=== PATIENT | male | born 1930 | race Caucasian/White ===

== ENCOUNTER 2017-05-09 08:49 | Emergency (ER) | payer MEDICARE ==
[~2017-05-09] VITALS: Ht 162.6 cm; Wt 66.7 kg
[~2017-05-09 08:49] MED LIST: ALEN70TA39 PO; ASPI81CH38 CHEW; ATEN-100 PO; COQ-100C2 PO; FISH100020 PO; GABA300C3 PO; MECL-62 PO; MECL25 PO; NITR0.4S SL; ROSU10 PO; SENO8.6T10 PO; TAB-TAB PO; VITA100018 PO
[2017-05-09 08:51] VITALS: BP 179/82; PULSE 69; RESP 16; TEMP 98.1; O2SAT 95
[2017-05-09] MEDS ORDERED: OMEG1CAP76 (09:14)
[2017-05-09] MEDS ORDERED: ALEN1TAB48 PO (09:14)
[2017-05-09] MEDS ORDERED: ATOR40TA16 PO (09:14)
[2017-05-09] MEDS ORDERED: GABA100C4 PO (09:14)
[2017-05-09] MEDS ORDERED: OCUVTAB4 PO (09:14)
[2017-05-09] MEDS ORDERED: TIZA4CAP3 PO (09:14)
[2017-05-09] MEDS ORDERED: CHOL100025 CHEW (09:14)
[2017-05-09] MEDS ORDERED: NITR0.4S SL (09:14)
[2017-05-09] MEDS ORDERED: MECL-62 PO (09:14)
[2017-05-09] MEDS ORDERED: PANT40TA3 PO (09:14)
[2017-05-09] MEDS ORDERED: SENN1TAB17 PO (09:14)
[2017-05-09] MEDS ORDERED: VIAG50TA PO (09:14)
[2017-05-09] MEDS ORDERED: ATEN50TA PO (09:14)
[2017-05-09] MEDS ORDERED: ONDA1TAB16 PO (09:14)
--- NOTE | 2017-05-09 09:28 | PD ---
HPI Chief Complaint: GI Complaint Time Seen by Provider: 09:01 Travel History International Travel<30 days: No Contact w/Intl Traveler<30days: No Traveled to known affect area: No History of Present Illness HPI This patient was eating a steak sandwich yesterday and felt like it got stuck on the way down. He vomited back up. He is now able to drink liquids and keep them down without difficulty. He has history of esophageal stricture requiring dilation. That was 2 years ago. He is not having any pain. Symptoms severity was moderate but now is improved. There were no obvious alleviating factors. 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) Hypertension: Yes Myocardial Infarction: Yes Past Surgical History Appendectomy: Yes Cardiac Surgery: Yes (PORCINE AORTIC VALVE, CABG X 3) Coronary Artery Bypass Graft: Yes (X 3) Coronary Stent: Yes (X 2) Tonsillectomy: Yes Valve Replacement: Yes Social History Alcohol Use: No Tobacco Use: No Substance Use: No Allergies-Medications (Allergen,Severity, Reaction): Coded Allergies: No Known Allergies (Unverified , 05/09/17) Reported Meds & Prescriptions Reported Meds & Active Scripts Active Reported Preservision Areds (Multiple Vitamins W/ Minerals) 1 Tab 1 Tab PO DAILY Alendronate (Alendronate Sodium) 70 Mg Tab 70 Mg PO Q7D Fish Oil + Vitamin D-3 Softgel (Omega3/Dha/Epa/Fish Oil/Vit D3) 1 Each Capsule Gabapentin 100 Mg Cap 300 Mg PO QID Vitamin D3 (Cholecalciferol) 1,000 Unit Chew 1,000 Units CHEW DAILY Atorvastatin (Atorvastatin Calcium) 40 Mg Tab 40 Mg PO HS Atenolol 50 Mg Tab 50 Mg PO BID Senokot S (Sennosides-Docusate Sodium) 8.6-50 Mg Tab 1 Tab PO DAILY Nitrostat SL (Nitroglycerin) 0.4 Mg Subl 0.4 Mg SL DIRECTED PRN 1 tablet under the tongue as needed for chest pain. Repeat every 5 minutes for a total of 3 DOSES or call 911 if NO relief. Ondansetron (Ondansetron HCl) 4 Mg Tab 1 Tab PO Q6HR Pantoprazole (Pantoprazole Sodium) 40 Mg Tab 40 Mg PO DAILY Tizanidine (Tizanidine HCl) 4 Mg Cap 4 Mg PO BID Meclizine (Meclizine HCl) 25 Mg Tab 25 Mg PO TID PRN Viagra (Sildenafil Citrate) 50 Mg Tab 50 Mg PO DAILY PRN Review of Systems General / Constitutional: No: Fever HENT: No: Headaches Cardiovascular: No: Chest Pain or Discomfort Physical Exam Narrative GASTROINTESTINAL: Abdomen soft, non-tender, nondistended. Positive bowel sounds. No hepato-splenomegaly, or palpable masses. No guarding. SKIN: Focused skin assessment reveals no rash or ulcers. Skin is warm and dry. Palpation shows no induration or nodules. NECK: Symmetrical appearance, midline trachea. No mass or crepitus. Thyroid without enlargement, tenderness, or mass. Throat clear Data Data Last Documented VS Vital Signs Date Time Temp Pulse Resp B/P Pulse Ox O2 Delivery O2 Flow Rate FiO2 05/09/17 08:51 98.1 69 16 179/82 95 MDM Medical Decision Making Medical Screen Exam Complete: Yes Emergency Medical Condition: Yes Medical Record Reviewed: Yes Differential Diagnosis Esophageal stricture, esophageal obstruction, GERD Narrative Course I have reviewed the patient's electronic medical record. I had the patient drink a glass of water while I watched and he did fine and did not have any nausea or vomiting and it all went down without difficulty. His abdomen is soft and benign and nontender Presentation is consistent with some esophageal stricture recurrence I recommended full liquid diet and he call Dr. Smith for follow-up appointment and discussion of repeat procedure as he did esophageal dilation 2 years ago on him Diagnosis Primary Impression: Esophageal stricture Referrals: Liz Bernal DO (PCP) call for appointment Yarely Quiles MD call for appointment Patient Instructions: General Instructions Departure Forms: Tests/Procedures Additional Instructions: Follow-up with GI physician Utilize full liquid diet Med/Other Pt SpecificInfo: Other Disposition: 01 DISCHARGE HOME Condition: Stable Jeremiah Malhotra MD May 09, 2017 09:28
== END 2017-05-09 09:44 | disposition home or self-care (01) ==
LOC: PHED 08:49
DX: K22.2 Esophageal obstruction (principal)
CPT/HCPCS: 99282

== ENCOUNTER 2017-07-10 20:47 | Emergency (ER) | payer MEDICARE ==
[~2017-07-10] VITALS: Ht 170.2 cm; Wt 65.1 kg
[~2017-07-10 20:47] MED LIST changes: +ALEN1TAB48 PO; -ALEN70TA39 PO; -ASPI81CH38 CHEW; -ATEN-100 PO; +ATEN50TA PO; +ATOR40TA16 PO; +CHOL100025 CHEW; -COQ-100C2 PO; -FISH100020 PO; +GABA100C4 PO; -GABA300C3 PO; -MECL25 PO; +OCUVTAB4 PO; +OMEG1CAP76; +ONDA1TAB16 PO; +PANT40TA3 PO; -ROSU10 PO; +SENN1TAB17 PO; -SENO8.6T10 PO; -TAB-TAB PO; +TIZA4CAP3 PO; +VIAG50TA PO; -VITA100018 PO
[2017-07-10 21:03] VITALS: BP 191/86; PULSE 63; RESP 18; TEMP 98.3; O2SAT 97
[2017-07-10] MEDS ORDERED: ROSU10 PO (22:28)
[2017-07-10] MEDS ORDERED: ATEN25TA PO (22:28)
[2017-07-10] MEDS ORDERED: ASPI81CH37 CHEW (22:28)
[2017-07-10 22:29] VITALS: BP 195/104; PULSE 65; RESP 20; O2SAT 98
--- NOTE | 2017-07-10 23:05 | PD ---
HPI Chief Complaint: Respiratory Symptoms Time Seen by Provider: 22:45 Travel History International Travel<30 days: No Contact w/Intl Traveler<30days: No Traveled to known affect area: No History of Present Illness HPI The patient is an 86-year-old male that states he ran out of his gabapentin 4 days ago. Since then he states he couldn't sleep, had an anxiety, nausea, muscle pains and sweating. The patient states that he needs a prescription to tide him over [facility]. He also was coughing up yellow sputum which has turned to clear sputum for the past week. 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) Hypertension: Yes Myocardial Infarction: Yes Influenza Vaccination: Yes Past Surgical History Appendectomy: Yes Cardiac Surgery: Yes (PORCINE AORTIC VALVE, CABG X 3) Coronary Artery Bypass Graft: Yes (X 3) Coronary Stent: Yes (X 2) Tonsillectomy: Yes Valve Replacement: Yes Social History Alcohol Use: No Tobacco Use: No Substance Use: No Allergies-Medications (Allergen,Severity, Reaction): Coded Allergies: No Known Allergies (Unverified , 07/10/17) Reported Meds & Prescriptions Reported Meds & Active Scripts Active Gabapentin 300 Mg Cap 300 Mg PO QID Reported Aspirin Low Dose (Aspirin) 81 Mg Chew 81 Mg CHEW DAILY Crestor (Rosuvastatin Calcium) 10 Mg Tab 10 Mg PO DAILY Atenolol 25 Mg Tab 25 Mg PO BID Preservision Areds (Multiple Vitamins W/ Minerals) 1 Tab 1 Tab PO DAILY Alendronate (Alendronate Sodium) 70 Mg Tab 70 Mg PO Q7D Gabapentin 100 Mg Cap 300 Mg PO QID Vitamin D3 (Cholecalciferol) 1,000 Unit Chew 1,000 Units CHEW DAILY Senokot S (Sennosides-Docusate Sodium) 8.6-50 Mg Tab 1 Tab PO DAILY Nitrostat SL (Nitroglycerin) 0.4 Mg Subl 0.4 Mg SL DIRECTED PRN 1 tablet under the tongue as needed for chest pain. Repeat every 5 minutes for a total of 3 DOSES or call 911 if NO relief. Ondansetron (Ondansetron HCl) 4 Mg Tab 1 Tab PO Q6HR Pantoprazole (Pantoprazole Sodium) 40 Mg Tab 40 Mg PO DAILY Meclizine (Meclizine HCl) 25 Mg Tab 25 Mg PO TID PRN Review of Systems Except as stated in HPI: all other systems reviewed are Neg Physical Exam Narrative GENERAL: The patient is alert, oriented 3 in no respiratory distress. His vital signs show blood pressure 191/86 but otherwise normal. SKIN: Focused skin assessment warm/dry. HEAD: Atraumatic. Normocephalic. EYES: Pupils equal and round. No scleral icterus. No injection or drainage. ENT: No nasal bleeding or discharge. Mucous membranes pink and moist. NECK: Trachea midline. No JVD. CARDIOVASCULAR: Regular rate and rhythm. No murmur appreciated. RESPIRATORY: No accessory muscle use. Clear to auscultation. Breath sounds equal bilaterally. GASTROINTESTINAL: Abdomen soft, non-tender, nondistended. Hepatic and splenic margins not palpable. MUSCULOSKELETAL: No obvious deformities. No clubbing. No cyanosis. No edema. NEUROLOGICAL: Awake and alert. No obvious cranial nerve deficits. Motor grossly within normal limits. Normal speech. PSYCHIATRIC: Appropriate mood and affect; insight and judgment normal. Data Data Last Documented VS Vital Signs Date Time Temp Pulse Resp B/P (MAP) Pulse Ox O2 Delivery O2 Flow Rate FiO2 07/10/17 22:30 20 98 07/10/17 22:29 65 195/104 (134) 07/10/17 21:03 98.3 Orders Orders Gabapentin (Neurontin) (07/10/17 23:15) Chest, Pa & Lat (07/10/17 23:09) Gabapentin (Neurontin) (07/11/17 00:45) [facility] Medical Decision Making Medical Screen Exam Complete: Yes Emergency Medical Condition: Yes Medical Record Reviewed: Yes Interpretation(s) The chest x-ray shows no acute cardiopulmonary disease, he has a normal heart size and a previous coronary artery bypass graft. There is a moderate to large size hiatal hernia present. Differential Diagnosis Gabapentin withdrawal, anxiety, bronchitis, pneumonia Narrative Course The patient appears to have gabapentin withdrawal. The patient has all of the symptoms of gabapentin withdrawal. He is given 3, 300 mg tablets tonight and a prescription for gabapentin to last [facility]. Diagnosis Primary Impression: Medication withdrawal Additional Instructions: Take the gabapentin as it was prescribed. Control prescription tomorrow, we gave you 3, 300mg at once tonight Med/Other Pt SpecificInfo: Prescription(s) given Scripts Gabapentin (Gabapentin) 300 Mg Cap 300 MG PO QID, #90 CAP 0 Refills Prov: Carlos García MD 07/11/17 Disposition: 01 DISCHARGE HOME Condition: Stable Carlos García MD Jul 10, 2017 23:05
[2017-07-10] MEDS ORDERED: GABAPENTIN 300 MG CAP PO ONE (23:15)
--- NOTE | 2017-07-10 23:50 | RADRPT ---
EXAM DATE/TIME: 07/10/2017 23:24 [place] COMPARISON: No previous studies available for comparison. INDICATIONS : Cough and short of breath. MEDICAL HISTORY : None. SURGICAL HISTORY : CABG. ENCOUNTER: Initial ACUITY: 1 day PAIN SCORE: 0/10 LOCATION: Bilateral chest FINDINGS: Mild, chronic interstitial opacities and basilar scarring again noted. No clear acute infiltrates see n. No pleural effusion or pneumothorax. Heart size stable, upper limits of normal. Patient has had previous median sternotomy and coronary ar charles bypass graft operation. Thoracic aorta is tortuous. A moderate to large hiatal hernia is seen. CONCLUSION: 1. No acute pneumonia demonstrated. 2. Mild chronic appearing scarring/interstitial changes. 3. Normal heart size. Previous CABG. 4. Moderate to large hiatal hernia. Ramirez Brewster MD on July 10, 2017 at 23:48 Board Certified Radiologist. This report was verified electronically.
[2017-07-11] MEDS ORDERED: GABA300C5 PO (00:30)
[2017-07-11] MEDS ORDERED: GABAPENTIN 300 MG CAP PO ONE (00:45)
[2017-07-11 00:50] VITALS: BP 174/98
== END 2017-07-11 01:49 | disposition home or self-care (01) ==
LOC: PHED 20:47
DX: F19.939 Other psychoactive substance use, unspecified with withdrawal, unspecified (principal); Z79.82 Long term (current) use of aspirin; Z79.899 Other long term (current) drug therapy
CPT/HCPCS: 71020; 99283

== ENCOUNTER 2018-01-21 13:36 | Emergency (ER) | payer MEDICARE ==
[~2018-01-21 13:36] MED LIST changes: +ASPI81CH6 CHEW; +ATEN25TA PO; -ATEN50TA PO; -ATOR40TA16 PO; +GABA300C5 PO; -OMEG1CAP76; -ONDA1TAB16 PO; +ONDA4TAB15 PO; +ROSU10 PO; -TIZA4CAP3 PO; -VIAG50TA PO
[2018-01-21 13:38] VITALS: BP 139/83; PULSE 73; RESP 16; TEMP 98.2; O2SAT 95
[2018-01-21] MEDS ORDERED: ATOR20TA15 PO (14:21)
[2018-01-21] MEDS ORDERED: ALUMINUM/MAGNESIUM/SIMETH 30 ML CUP PO ONE (15:00)
[2018-01-21] MEDS ORDERED: LIDOCAINE VISCOUS 2% SOLN 15 ML UDC PO ONE (15:00)
--- NOTE | 2018-01-21 15:01 | PD ---
HPI Chief Complaint: ENT Complaint Time Seen by Provider: 14:48 Travel History International Travel<30 days: No Contact w/Intl Traveler<30days: No Traveled to known affect area: No History of Present Illness HPI This patient reports that he is irritated his throat. He ate spaghetti with a spicy sauce last night and thinks that irritated his throat. He was able to swallow his pills after that before he went to bed. He does have history of esophageal stricture requiring dilation periodically. However he does not feel like anything is stuck in his throat. He is not having pain. Symptom severity is mild to moderate. Duration one day. No alleviating factors. Symptoms exacerbated by spicy spaghetti sauce. 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) Hypertension: Yes Myocardial Infarction: Yes Past Surgical History Appendectomy: Yes Cardiac Surgery: Yes (PORCINE AORTIC VALVE, CABG X 3) Coronary Artery Bypass Graft: Yes (X 3) Coronary Stent: Yes (X 2) Tonsillectomy: Yes Valve Replacement: Yes Social History Alcohol Use: No Tobacco Use: No Substance Use: No Allergies-Medications (Allergen,Severity, Reaction): Coded Allergies: No Known Allergies (Unverified Adverse Reaction, Unknown, 01/21/18) Reported Meds & Prescriptions Reported Meds & Active Scripts Active Gabapentin 300 Mg Cap 300 Mg PO QID Reported Atorvastatin (Atorvastatin Calcium) 20 Mg Tab 20 Mg PO HS Aspirin Low Dose (Aspirin) 81 Mg Chew 81 Mg CHEW DAILY Atenolol 25 Mg Tab 25 Mg PO BID Preservision Areds (Multiple Vitamins W/ Minerals) 1 Tab 1 Tab PO DAILY Alendronate (Alendronate Sodium) 70 Mg Tab 70 Mg PO Q7D Vitamin D3 (Cholecalciferol) 1,000 Unit Chew 1,000 Units CHEW DAILY Nitrostat SL (Nitroglycerin) 0.4 Mg Subl 0.4 Mg SL DIRECTED PRN 1 tablet under the tongue as needed for chest pain. Repeat every 5 minutes for a total of 3 DOSES or call 911 if NO relief. Pantoprazole (Pantoprazole Sodium) 40 Mg Tab 40 Mg PO DAILY Review of Systems General / Constitutional: No: Fever Eyes: No: Visual changes HENT: No: Headaches Cardiovascular: No: Chest Pain or Discomfort Respiratory: No: Shortness of Breath Gastrointestinal: No: Abdominal Pain Genitourinary: No: Dysuria Musculoskeletal: No: Pain Skin: No Rash Neurologic: No: Weakness Psychiatric: No: Depression Endocrine: No: Polydipsia Hematologic/Lymphatic: No: Easy Bruising Physical Exam Narrative GENERAL: Pleasant elderly well-developed patient in no apparent distress. SKIN: Focused skin assessment reveals no rash and nodules. Skin is Warm and dry. HEAD: Atraumatic. Normocephalic. EYES: Pupils equal and round. No scleral icterus. No injection or drainage. ENT: No nasal bleeding or discharge. Mucous membranes pink and moist. Throat looks clear without exudate or lesions or swelling NECK: Trachea midline. No JVD. CARDIOVASCULAR: Regular rate and rhythm. No murmur appreciated. RESPIRATORY: No accessory muscle use. Clear to auscultation. Breath sounds equal bilaterally. GASTROINTESTINAL: Abdomen soft, non-tender, nondistended. Hepatic and splenic margins not palpable. MUSCULOSKELETAL: No obvious deformities. No clubbing. No cyanosis. No edema. NEUROLOGICAL: Awake and alert. No obvious cranial nerve deficits. Motor grossly within normal limits. Normal speech. PSYCHIATRIC: Appropriate mood and affect; insight and judgment normal. Data Data Last Documented VS Vital Signs Date Time Temp Pulse Resp B/P (MAP) Pulse Ox O2 Delivery O2 Flow Rate FiO2 01/21/18 13:38 98.2 73 16 139/83 (101) 95 Orders Orders Al-Mag Hy-Si 40-40-4 Mg/Ml Liq (Mag-Al P (01/21/18 15:00) Lidocaine 2% Viscous (Xylocaine 2% Visco (01/21/18 15:00) [facility] Medical Decision Making Medical Screen Exam Complete: Yes Emergency Medical Condition: Yes Medical Record Reviewed: Yes Differential Diagnosis Esophageal irritation, esophagitis, esophageal stricture, foreign body Narrative Course I have reviewed the patient's electronic medical record. Patient has been here before for esophageal issues Patient looks clinically fine without acute symptoms and does not think anything is stuck in his throat. I have given him a trial of Maalox and lidocaine and will see how he does with that Patient drank that down fine. I also gave him a Glass of water that he drank down No vomiting. No throat pain. I recommended a full liquid diet with things like applesauce pudding Jell-O but avoidance of chicken and steak He cannot think of his GI doctor's name but has it at home. He will give him a call for follow-up. Diagnosis Primary Impression: Throat irritation Additional Impression: History of esophageal stricture Additional Instructions: The patient was advised to follow up with their physician and return if they worsen. Call your GI physician for follow-up Avoid steak chicken and fish oil pills Use a full liquid diet with things like Jell-O and pudding and applesauce being okay Med/Other Pt SpecificInfo: Other Disposition: 01 DISCHARGE HOME Condition: Stable Jeremiah Malhotra MD Jan 21, 2018 15:01
[2018-01-22] MEDS ORDERED: AMLO2.5T PO (00:27)
[2018-01-22] MEDS ORDERED: LISI10TA3 PO (00:27)
[2018-01-22] MEDS ORDERED: AMOX500C PO (00:27)
[2018-01-22] MEDS ORDERED: ZOFR4TAB PO (00:27)
[2018-01-22] MEDS ORDERED: OCUVTAB4 PO (00:27)
[2018-01-22] MEDS ORDERED: MECL-62 PO (00:27)
[2018-01-22] MEDS ORDERED: FISHCAP4 PO (00:27)
== END 2018-01-21 16:14 | disposition home or self-care (01) ==
LOC: PHEFT 13:36
DX: K92.89 Other specified diseases of the digestive system (principal); I25.10 Atherosclerotic heart disease of native coronary artery without angina pectoris; I10 Essential (primary) hypertension; E78.00 Pure hypercholesterolemia, unspecified; I25.2 Old myocardial infarction; Z98.890 Other specified postprocedural states; Z79.82 Long term (current) use of aspirin; Z95.1 Presence of aortocoronary bypass graft; Z95.5 Presence of coronary angioplasty implant and graft; Z95.2 Presence of prosthetic heart valve
CPT/HCPCS: 99282

== ENCOUNTER 2018-01-21 22:49 | Observation (INO) | payer MEDICARE ==
[~2018-01-21] VITALS: Ht 167.6 cm; Wt 69.0 kg
[2018-01-21 22:49] VITALS: BP 149/85; PULSE 72; RESP 18; TEMP 98.3; O2SAT 96
[~2018-01-21 22:49] MED LIST changes: +ATOR20TA15 PO
--- NOTE | 2018-01-21 23:36 | PD ---
HPI Chief Complaint: ENT Complaint Time Seen by Provider: 23:11 Travel History International Travel<30 days: No Contact w/Intl Traveler<30days: No Traveled to known affect area: No History of Present Illness HPI The patient is an 87-year-old male that was seen earlier today by Dr. Malhotra for sore throat and inability to swallow and was discharged but the patient states he cannot swallow liquids. The patient is afraid he will get dehydrated. He has a known esophageal stricture and has seen Dr. Nielson 3 years ago for this. He denies any fever. PFSH Past Medical History Hx Anticoagulant Therapy: Yes (ASA 81MG) Cardiac Catheterization: Yes Cardiovascular Problems: Yes ([place] MEDS, [place] X 1 X 2 [place]) High Cholesterol: Yes Chest Pain: Yes Coronary Artery Disease: Yes Diabetes: No Diminished Hearing: Yes (BILATERAL [place]IZ[place]-NOT WEARING HEARING AIDS) Gastrointestinal Disorders: Yes (ESOPHAGEAL STRICTURE) Hypertension: Yes Myocardial Infarction: Yes Pneumonia: Yes Past Surgical History Appendectomy: Yes Cardiac Surgery: Yes (PORCINE AORTIC VALVE, CABG X 3) Coronary Artery Bypass Graft: Yes (X 3) Coronary Stent: Yes (X 2) Ear Surgery: Yes (CHILDHOOD) Eye Surgery: Yes (BILAT CATARACT) Oral Surgery: Yes (EXTRACTIONS) Tonsillectomy: Yes Valve Replacement: Yes Social History Alcohol Use: No Tobacco Use: No (QUIT 1947) Substance Use: No Allergies-Medications (Allergen,Severity, Reaction): Coded Allergies: No Known Allergies (Unverified Adverse Reaction, Unknown, 01/21/18) Reported Meds & Prescriptions Reported Meds & Active Scripts Active Gabapentin 300 Mg Cap 300 Mg PO QID Reported Atorvastatin (Atorvastatin Calcium) 20 Mg Tab 20 Mg PO HS Aspirin Low Dose (Aspirin) 81 Mg Chew 81 Mg CHEW DAILY Atenolol 25 Mg Tab 25 Mg PO BID Preservision Areds (Multiple Vitamins W/ Minerals) 1 Tab 1 Tab PO DAILY Alendronate (Alendronate Sodium) 70 Mg Tab 70 Mg PO Q7D Vitamin D3 (Cholecalciferol) 1,000 Unit Chew 1,000 Units CHEW DAILY Nitrostat SL (Nitroglycerin) 0.4 Mg Subl 0.4 Mg SL DIRECTED PRN 1 tablet under the tongue as needed for chest pain. Repeat every 5 minutes for a total of 3 DOSES or call 911 if NO relief. Pantoprazole (Pantoprazole Sodium) 40 Mg Tab 40 Mg PO DAILY Review of Systems Except as stated in HPI: all other systems reviewed are Neg Physical Exam Narrative GENERAL: The patient is alert, oriented 3 in minimal apparent distress with his esophageal discomfort. His vital signs show blood pressure 129/85 but are otherwise normal. He does appear slightly dehydrated. The patient is spitting up saliva. SKIN: Focused skin assessment warm/dry. HEAD: Atraumatic. Normocephalic. EYES: Pupils equal and round. No scleral icterus. No injection or drainage. ENT: No nasal bleeding or discharge. Mucous membranes pink and slightly dry. NECK: Trachea midline. No JVD. CARDIOVASCULAR: Regular rate and rhythm. No murmur appreciated. RESPIRATORY: No accessory muscle use. Clear to auscultation. Breath sounds equal bilaterally. GASTROINTESTINAL: Abdomen soft, non-tender, nondistended. Hepatic and splenic margins not palpable. No guarding or rebound is present. MUSCULOSKELETAL: No obvious deformities. No clubbing. No cyanosis. No edema. NEUROLOGICAL: Awake and alert. No obvious cranial nerve deficits. Motor grossly within normal limits. Normal speech. PSYCHIATRIC: Appropriate mood and affect; insight and judgment normal. Data Data Last Documented VS Vital Signs Date Time Temp Pulse Resp B/P (MAP) Pulse Ox O2 Delivery O2 Flow Rate FiO2 01/21/18 22:49 98.3 72 18 149/85 (106) 96 MDM Medical Decision Making Medical Screen Exam Complete: Yes Emergency Medical Condition: Yes Medical Record Reviewed: Yes Differential Diagnosis Esophageal stricture-able to take fluids, esophageal stricture unable to take fluids, perforation of esophagus-highly unlikely Narrative Course We attempted to have the patient swallowed water and he slipped a very small amount of water and had difficulty swallowing. He gagged many times. The patient needs IV hydration and he will likely need GI consultation later on tomorrow. I discussed the patient with Dr. Sexton. Physician Communication Physician Communication I discussed the patient with Dr. Sexton. Diagnosis Primary Impression: Esophageal obstruction Additional Impression: Esophageal stricture Admitting Information Admitting Physician Requests: Observation Disposition: 01 DISCHARGE HOME Condition: Stable Carlos García MD Jan 21, 2018 23:36
[2018-01-21] MEDS ORDERED: LACTULOSE SYRUP 20 GM/30 ML CUP PO PRN (23:45)
[2018-01-21] MEDS ORDERED: NALOXONE HCL 0.4 MG/ML AMP IV PUSH PRN (23:45)
[2018-01-21] MEDS ORDERED: ONDANSETRON HCL 4 MG/2 ML VIAL IVP PRN (23:45)
[2018-01-21] MEDS ORDERED: MAGNESIUM HYDROXIDE SUSP 30 ML CUP PO PRN (23:45)
[2018-01-21] MEDS ORDERED: BISACODYL 10 MG SUPP RECTAL PRN (23:45)
[2018-01-21] MEDS ORDERED: SENNOSIDES 8.6 MG TAB PO PRN (23:45)
[2018-01-21] MEDS ORDERED: SODIUM CHLORIDE 0.9% FLUSH 10 ML FLUSH IV FLUSH PRN (23:45)
[2018-01-22] MEDS: SODIUM CHLOR 0.9% 1000 ML INJ 1,000 ML IV SCH ×6 (00:09→20:40)
[2018-01-22 00:13] LABS: AUTOMATED NEUTROPHIL # 5.1 TH/MM3 (1.8-7.7); BASOPHIL # 0.2 TH/MM3 (0-0.2); BASOPHIL % 2.2 % (0.0-2.0); EOSINOPHIL # 0.2 TH/MM3 (0-0.4); EOSINOPHIL % 2.3 % (0.0-4.0); HEMATOCRIT 43.2 % (39.0-51.0); HEMOGLOBIN 14.2 GM/DL (13.0-17.0); LYMPH % 19.7 % (9.0-44.0); LYMPHOCYTE # 1.5 TH/MM3 (1.0-4.8); MEAN CELL VOLUME 82.8 FL (80.0-100.0); MEAN CORPUSCULAR HEMOGLOBIN 27.1 PG (27.0-34.0); MEAN CORPUSCULAR HGB CONC 32.8 % (32.0-36.0); MEAN PLATELET VOLUME 8.8 FL (7.0-11.0); MONO % 8.6 % (0.0-8.0); MONOCYTE # 0.7 TH/MM3 (0-0.9); NEUT % 67.2 % (16.0-70.0); PLATELET COUNT 167 TH/MM3 (150-450); RED BLOOD COUNT 5.22 MIL/MM3 (4.50-5.90); RED CELL DISTRIBUTION WIDTH 16.7 % (11.6-17.2); WHITE BLOOD COUNT 7.7 TH/MM3 (4.0-11.0)
[2018-01-22 00:26] LABS: CHLORIDE 103 MEQ/L (98-107); SODIUM (NA) 136 MEQ/L (136-145)
[2018-01-22] MEDS ORDERED: AMLO2.5T PO (00:27)
[2018-01-22] MEDS ORDERED: OCUVTAB4 PO (00:27)
[2018-01-22] MEDS ORDERED: ZOFR4TAB PO (00:27)
[2018-01-22] MEDS ORDERED: AMOX500C PO (00:27)
[2018-01-22] MEDS ORDERED: FISHCAP4 PO (00:27)
[2018-01-22] MEDS ORDERED: MECL-62 PO (00:27)
[2018-01-22] MEDS ORDERED: LISI10TA3 PO (00:27)
[2018-01-22 00:29] LABS: CALCIUM 9.3 MG/DL (8.5-10.1)
[2018-01-22 00:30] LABS: ALBUMIN 3.6 GM/DL (3.4-5.0); BICARBONATE 27.7 MEQ/L (21.0-32.0); BLOOD UREA NITROGEN 8 MG/DL (7-18); GLUCOSE,RANDOM 101 MG/DL (74-106)
[2018-01-22 00:33] LABS: ALT (GPT) 18 U/L (12-78); AST (GOT) 21 U/L (15-37); CREATININE 0.59 MG/DL (0.60-1.30); GLOMERULAR FILTRATION RATE 130 ML/MIN (>89)
[2018-01-22 00:35] LABS: TOTAL BILIRUBIN ADULT 1.2 MG/DL (0.2-1.0); TOTAL PROTEIN 7.8 GM/DL (6.4-8.2)
[2018-01-22 00:36] LABS: ALKALINE PHOSPHATASE 154 U/L (45-117)
[2018-01-22 01:03] VITALS: BP 157/76; PULSE 73; RESP 20; TEMP 97.8; O2SAT 95
[2018-01-22 01:04] LABS: BILIRUBIN, URINE NEG (NEG); BLOOD, URINE NEG (NEG); GLUCOSE,URINE NEG (NEG); KETONE, URINE TRACE mg/dL (NEG); NITRITE,URINE NEG (NEG); PH, URINE 6.5 (5.0-8.5); URINE COLOR YELLOW (YELLW/STRAW); URINE LEUKOCYTE ESTERASE NEG (NEG)
[2018-01-22 01:11] LABS: RBC, URINE 0-3 /hpf (0-3); SQUAMOUS EPITHELIAL CELL URINE 0-5 /hpf (0-5)
[2018-01-22 01:12] LABS: WBC, URINE 0-2 /hpf (0-5)
[2018-01-22] MEDS ORDERED: MORPHINE SULFATE 4 MG/ML INJ IV PUSH ONE (03:00)
[2018-01-22] MEDS ORDERED: PANTOPRAZOLE SODIUM 40 MG VIAL IV PUSH ONE (03:00)
[2018-01-22 06:24] LABS: AUTOMATED NEUTROPHIL # 4.6 TH/MM3 (1.8-7.7); BASOPHIL % 0.5 % (0.0-2.0); EOSINOPHIL # 0.2 TH/MM3 (0-0.4); EOSINOPHIL % 2.4 % (0.0-4.0); HEMATOCRIT 37.6 % (39.0-51.0); HEMOGLOBIN 11.9 GM/DL (13.0-17.0); LYMPH % 21.8 % (9.0-44.0); LYMPHOCYTE # 1.6 TH/MM3 (1.0-4.8); MEAN CELL VOLUME 83.3 FL (80.0-100.0); MEAN CORPUSCULAR HEMOGLOBIN 26.5 PG (27.0-34.0); MEAN CORPUSCULAR HGB CONC 31.8 % (32.0-36.0); MEAN PLATELET VOLUME 8.7 FL (7.0-11.0); MONO % 9.2 % (0.0-8.0); MONOCYTE # 0.7 TH/MM3 (0-0.9); NEUT % 66.1 % (16.0-70.0); PLATELET COUNT 156 TH/MM3 (150-450); RED BLOOD COUNT 4.51 MIL/MM3 (4.50-5.90); RED CELL DISTRIBUTION WIDTH 16.3 % (11.6-17.2); WHITE BLOOD COUNT 7.1 TH/MM3 (4.0-11.0)
[2018-01-22 07:11] LABS: BICARBONATE 24.9 MEQ/L (21.0-32.0); CALCIUM 8.4 MG/DL (8.5-10.1); CREATININE 0.48 MG/DL (0.60-1.30)
[2018-01-22 08:00] VITALS: BP 146/73; PULSE 72; RESP 18; TEMP 97.2; O2SAT 95
[2018-01-22] MEDS: DOCUSATE SODIUM 50 MG/SENNA 8.6 MG TAB PO SCH ×2 (08:49→20:40)
[2018-01-22] MEDS: SODIUM CHLORIDE 0.9% FLUSH 10 ML FLUSH IV FLUSH SCH ×2 (08:49→20:12)
--- NOTE | 2018-01-22 09:08 | HHI.HP ---
[facility] Ad[facility] Diagnosis Esophageal stricture/obstruction Diagnoses: (1) Esophageal obstruction (2) Esophageal stricture Chief Complaint: Dysphagia Travel History International Travel<30 Days: No Contact w/Intl Traveler <30 Da: No Traveled to Known Affected Are: No History of Present Illness This is a pleasant 87-year-old male patient with known medical history of CAD with AL and cardiac stent placement, hypertension and history of esophageal stricture who presented to the ED yesterday as well as last evening with dysphagia. Patient was sent home yesterday from the ED with recommendations to follow-up with his GI doctor and adhere to a full liquid diet until seen by gastroenterology. Patient does state he has been having nausea and vomiting since Saturday and inability to swallow liquids. Patient does admit to positive bowel movement denies any diarrhea or hematozemia. Denies any hemoptysis. Nausea and vomiting has since slowed down. Denies any recent illness including fever, chills, cough, headache, shortness of breath, abdominal pain, diarrhea or dysuria. Patient does see a package dyeing machine operator, Dr. Evans, last seen 3 years ago for esophageal stricture and reported dilation. Patient follows with the ID. Review of Systems Constitutional: COMPLAINS OF: Fatigue, DENIES: Fever, Chills Endocrine: DENIES: Heat/cold intolerance Eyes: DENIES: Blurred vision, Diplopia Respiratory: DENIES: Cough, Sputum production, Shortness of breath Cardiovascular: DENIES: Chest pain Gastrointestinal: COMPLAINS OF: Nausea, Vomiting, Difficulty Swallowing, DENIES : Abdominal pain, Black stools, Bloody stools, Constipation, Diarrhea Musculoskeletal: DENIES: Joint pain Hematologic/lymphatic: DENIES: Bruising Psychiatric: COMPLAINS OF: Anxiety Except as stated in HPI: all other systems reviewed are Neg Past Family Social History Past Medical History CAD with history of AL and cardiac stent placement Hypertension Hyperlipidemia Bilateral hard of hearing History of esophageal stricture Past Surgical History History of cardiac stent placement CABG 3 vessel repair Aortic valve replacement Appendectomy Bilateral cataract surgery Tonsillectomy Reported Medications Active Gabapentin 300 Mg Cap 300 Mg PO QID Reported Amlodipine (Amlodipine Besylate) 2.5 Mg Tab 2.5 Mg PO HS Preservision Areds (Multiple Vitamins W/ Minerals) 1 Tab 1 Tab PO BID Amoxicillin 500 Mg Cap 1,000 Mg PO ONCE PRN Lisinopril 10 Mg Tab 10 Mg PO DAILY Fish Oil + D3 (Fish Oil-Cholecalciferol) 1,200-1,000 Mg-Unit Cap 1 Cap PO BID Meclizine (Meclizine HCl) 25 Mg Tab 25 Mg PO TID PRN Zofran (Ondansetron HCl) 4 Mg Tab 4 Mg PO Q8HR PRN Atorvastatin (Atorvastatin Calcium) 20 Mg Tab 20 Mg PO HS Aspirin Low Dose (Aspirin) 81 Mg Chew 81 Mg CHEW DAILY Atenolol 25 Mg Tab 25 Mg PO BID Alendronate (Alendronate Sodium) 70 Mg Tab 70 Mg PO Q7D Vitamin D3 (Cholecalciferol) 1,000 Unit Chew 1,000 Units CHEW DAILY Nitrostat SL (Nitroglycerin) 0.4 Mg Subl 0.4 Mg SL DIRECTED PRN 1 tablet under the tongue as needed for chest pain. Repeat every 5 minutes for a total of 3 DOSES or call 911 if NO relief. Pantoprazole (Pantoprazole Sodium) 40 Mg Tab 40 Mg PO DAILY Allergies: Coded Allergies: No Known Allergies (Unverified Adverse Reaction, Unknown, 01/21/18) Active Ordered Medications Current Medications Medications (Trade) Dose Ordered Sig/Adrian Route Start Time Stop Time Status Last Admin Sodium Chloride 1,000 ml @ 100 mls/hr Q10H IV 01/21/18 23:31 01/22/18 02:13 (NS Flush) 2 ml UNSCH PRN IV FLUSH 01/21/18 23:45 (NS Flush) 2 ml BID IV FLUSH 01/22/18 09:00 (Zofran Inj) 4 mg Q6H PRN IVP 01/21/18 23:45 (Narcan Inj) 0.4 mg UNSCH PRN IV PUSH 01/21/18 23:45 (Jewels-Colace) 1 tab BID PO 01/22/18 09:00 (Milk Of Magnesia Liq) 30 ml Q12H PRN PO 01/21/18 23:45 (Senokot) 17.2 mg Q12H PRN PO 01/21/18 23:45 (Dulcolax Supp) 10 mg DAILY PRN RECTAL 01/21/18 23:45 (Lactulose Liq) 30 ml DAILY PRN PO 01/21/18 23:45 Family History Father had an AL at the age of 52. Social History Denies any tobacco abuse. States he quit drinking 4 years ago. Denies any illicit drug use. Physical Exam Vital Signs Vital Signs Date Time Temp Pulse Resp B/P (MAP) Pulse Ox O2 Delivery O2 Flow Rate FiO2 01/22/18 01:03 97.8 73 20 157/76 (103) 95 01/21/18 22:49 98.3 72 18 149/85 (106) 96 Physical Exam GENERAL: Well-developed, elderly male patient in [place]. SKIN: Warm and dry. No rash. HEAD: Normocephalic. Atraumatic. EYES: Pupils equal and round. No scleral icterus. No injection or drainage. ENT: No nasal bleeding or discharge. Mucous membranes pink and moist. NECK: Supple. Trachea midline. CARDIOVASCULAR: Regular rate and rhythm. S1, S2 noted. RESPIRATORY: No accessory muscle use. Clear to auscultation. Breath sounds equal bilaterally. GASTROINTESTINAL: Mid abdominal scar from previous surgery. Palpation of abdominal mesh. Abdomen soft, non-tender, nondistended. Normoactive bowel sounds x4. MUSCULOSKELETAL: No obvious deformities. Extremities without clubbing, cyanosis , or edema. NEUROLOGICAL: Awake and alert. No obvious cranial nerve deficits. Motor grossly within normal limits. 4/5 muscle strength in bilateral upper and lower extremities. Normal speech. PSYCHIATRIC: Appropriate mood and affect; insight and judgment normal. Laboratory Laboratory Tests Test 01/21/18 23:50 01/22/18 00:51 01/22/18 05:30 White Blood Count 7.7 7.1 Red Blood Count 5.22 4.51 Hemoglobin 14.2 11.9 Hematocrit 43.2 37.6 Mean Corpuscular Volume 82.8 83.3 Mean Corpuscular Hemoglobin 27.1 26.5 Mean Corpuscular Hemoglobin Concent 32.8 31.8 Red Cell Distribution Width 16.7 16.3 Platelet Count 167 156 Mean Platelet Volume 8.8 8.7 Neutrophils (%) (Auto) 67.2 66.1 Lymphocytes (%) (Auto) 19.7 21.8 Monocytes (%) (Auto) 8.6 9.2 Eosinophils (%) (Auto) 2.3 2.4 Basophils (%) (Auto) 2.2 0.5 Neutrophils # (Auto) 5.1 4.6 Lymphocytes # (Auto) 1.5 1.6 Monocytes # (Auto) 0.7 0.7 Eosinophils # (Auto) 0.2 0.2 Basophils # (Auto) 0.2 0.0 CBC Comment DIFF FINAL DIFF FINAL Differential Comment Blood Urea Nitrogen 8 7 Creatinine 0.59 0.48 Random Glucose 101 84 Total Protein 7.8 Albumin 3.6 Calcium Level 9.3 8.4 Alkaline Phosphatase 154 Aspartate Amino Transf (AST/SGOT) 21 Alanine Aminotransferase (ALT/SGPT) 18 Total Bilirubin 1.2 Sodium Level 136 142 Potassium Level 4.0 3.8 Chloride Level 103 109 Carbon Dioxide Level 27.7 24.9 Anion Gap 5 8 Estimat Glomerular Filtration Rate 130 165 B-Type Natriuretic Peptide 568 Urine Collection Type CLEAN CATCH Urine Color YELLOW Urine Turbidity CLEAR Urine pH 6.5 Urine Specific [place] LESS/EQUAL 1.005 Urine Protein NEG Urine Glucose (UA) NEG Urine Ketones TRACE Urine Occult Blood NEG Urine Nitrite NEG Urine Bilirubin NEG Urine Urobilinogen 1.0 Urine Leukocyte Esterase NEG Urine RBC 0-3 Urine WBC 0-2 Urine Squamous Epithelial Cells 0-5 Microscopic Urinalysis Comment CULT NOT INDICATED Result Diagram: 01/22/1852901/22/1830 Septic Shock Reassessment Septic shock perfusion: reassessment completed Caprini VTE Risk Assessment Caprini VTE Risk Assessment: Mod/High Risk (score >= 2) Caprini Risk Assessment Model Point Value = 1 Point Value = 2 Point Value = 3 Point Value = 5 Age 41-60 Minor surgery BMI > 25 kg/m2 Swollen legs Varicose veins or History of unexplained or recurrent spontaneous Oral contraceptives or hormone replacement Sepsis (< 1 month) Serious lung disease, including pneumonia (< 1 month) Abnormal pulmonary function Acute myocardial infarction Congestive heart failure (< 1 month) History of inflammatory bowel disease Medical patient at bed rest Age 61-74 Arthroscopic surgery Major open surgery (> 45 min) Laparoscopic surgery (> 45 min) Malignancy Confined to bed (> 72 hours) Immobilizing plaster cast Central venous access Age >= 75 History of VTE Family history of VTE Factor V Leiden Prothrombin [id number] Lupus anticoagulant Anticardiolipin antibodies Elevated serum homocysteine Heparin-induced thrombocytopenia Other congenital or acquired thrombophilia Stroke (< 1 month) Elective arthroplasty Hip, pelvis, or leg fracture Acute spinal cord injury (< 1 month) Prophylaxis Regimen Total Risk Factor Score Risk Level Prophylaxis Regimen 0-1 Low Early ambulation 2 Moderate Order ONE of the following: *Sequential Compression Device (SCD) *Heparin 5000 units SQ BID 3-4 Higher Order ONE of the following medications: *Heparin 5000 units SQ TID *Enoxaparin/Lovenox 40 mg SQ daily (WT < 150 kg, CrCl > 30 mL/min) *Enoxaparin/Lovenox 30 mg SQ daily (WT < 150 kg, CrCl > 10-29 mL/min) *Enoxaparin/Lovenox 30 mg SQ BID (WT < 150 kg, CrCl > 30 mL/min) AND/OR *Sequential Compression Device (SCD) 5 or more Highest Order ONE of the following medications: *Heparin 5000 units SQ TID (Preferred with Epidurals) *Enoxaparin/Lovenox 40 mg SQ daily (WT < 150 kg, CrCl > 30 mL/min) *Enoxaparin/Lovenox 30 mg SQ daily (WT < 150 kg, CrCl > 10-29 mL/min) *Enoxaparin/Lovenox 30 mg SQ BID (WT < 150 kg, CrCl > 30 mL/min) AND *Sequential Compression Device (SCD) Assessment and Plan Assessment and Plan This is a pleasant 87-year-old male patient with known medical history of CAD with AL and cardiac stent placement, hypertension and history of esophageal stricture who presented to the ED yesterday as well as last evening with dysphagia. Dysphagia Nausea and vomiting - Suspect secondary to history of esophageal stricture rule out esophageal obstruction - Gastroenterology consulted, appreciate input recommendations. - Speech therapy ordered, assess swallowing ability. - Monitor for any aspiration. - Ensure hydration, continue IV fluids. Patient was given Maalox and viscous lidocaine in the ED. Also given PPI. Will continue daily. - Zofran available for nausea as needed. - Morphine IV given in ED. Patient denies any pain at this time. We will continue to monitor. - Supportive care History of CAD, AL and cardiac stent placement Hypertension, chronic Hyperlipidemia, chronic -Hold p.o. medications at this time, concern for aspiration and esophageal obstruction. Monitor BP trends. Vasotec IV as needed. DVT prophylaxis: SCDs. We will hold chemical prophylaxis in case patient requires any gastroenterology intervention. Nina Colindres Jan 22, 2018 09:08
[2018-01-22] MEDS ORDERED: ENALAPRILAT 1.25 MG/ML VIAL IV PUSH PRN (09:30)
[2018-01-22] MEDS ORDERED: PANTOPRAZOLE SODIUM 40 MG VIAL IV PUSH SCH ×2 (10:00→15:00)
[2018-01-22 12:00] VITALS: BP 144/66; PULSE 73; RESP 18; TEMP 98; O2SAT 95
[2018-01-22 16:00] VITALS: BP 140/70; PULSE 70; RESP 18; TEMP 97.2; O2SAT 95
--- NOTE | 2018-01-22 18:14 | PD.CONS ---
HPI History of Present Illness This is a 87 year old male who has been having progressively worse difficulty swallowing over the last several months. He was admitted through the ER for symptoms of recurrence of food bolus impaction associated with nausea vomiting. He he has symptoms of heartburn and dyspepsia. He denies any abdominal pain hematemesis melena hematochezia chronic constipation chronic diarrhea jaundice ascites edema. PFSH Past Medical History CAD with history of MN and cardiac stent placement Hypertension Hyperlipidemia Bilateral hard of hearing History of chronic GERD associated with peptic esophageal stricture Past Surgical History History of cardiac stent placement CABG 3 vessel repair Aortic valve replacement Appendectomy Bilateral cataract surgery Tonsillectomy EGD with stricture dilation Coded Allergies: No Known Allergies (Unverified Adverse Reaction, Unknown, 01/21/18) Medications As per nursing records Family History Father had an MN at the age of 52. Social History Denies any tobacco abuse. States he quit drinking 4 years ago. Denies any illicit drug use. Review of Systems Gastrointestinal: COMPLAINS OF: Nausea, Vomiting, Difficulty Swallowing, DENIES : Abdominal pain, Black stools, Bloody stools, Constipation, Diarrhea, Anorexia , Odynophagia, Swelling of Abdomen, Heartburn, Hematemesis GI Exam Vitals I&O Vital Signs Date Time Temp Pulse Resp B/P (MAP) Pulse Ox O2 Delivery O2 Flow Rate FiO2 01/22/18 12:00 98.0 73 18 144/66 (92) 95 01/22/18 08:00 97.2 72 18 146/73 (97) 95 01/22/18 01:03 97.8 73 20 157/76 (103) 95 01/21/18 22:49 98.3 72 18 149/85 (106) 96 I/O 01/21/18 01/21/18 01/21/18 01/22/18 01/22/18 01/22/18 07:00 15:00 23:00 07:00 15:00 23:00 Intake Total 2436 ml 755 ml Balance 2436 ml 755 ml Intake Oral 0 ml IV Total 2436 ml 755 ml # Voids 5 Laboratory Test 01/21/18 23:50 01/22/18 00:51 01/22/18 05:30 White Blood Count 7.7 TH/MM3 7.1 TH/MM3 Red Blood Count 5.22 MIL/MM3 4.51 MIL/MM3 Hemoglobin 14.2 GM/DL 11.9 GM/DL Hematocrit 43.2 % 37.6 % Mean Corpuscular Volume 82.8 FL 83.3 FL Mean Corpuscular Hemoglobin 27.1 PG 26.5 PG Mean Corpuscular Hemoglobin Concent 32.8 % 31.8 % Red Cell Distribution Width 16.7 % 16.3 % Platelet Count 167 TH/MM3 156 TH/MM3 Mean Platelet Volume 8.8 FL 8.7 FL Neutrophils (%) (Auto) 67.2 % 66.1 % Lymphocytes (%) (Auto) 19.7 % 21.8 % Monocytes (%) (Auto) 8.6 % 9.2 % Eosinophils (%) (Auto) 2.3 % 2.4 % Basophils (%) (Auto) 2.2 % 0.5 % Neutrophils # (Auto) 5.1 TH/MM3 4.6 TH/MM3 Lymphocytes # (Auto) 1.5 TH/MM3 1.6 TH/MM3 Monocytes # (Auto) 0.7 TH/MM3 0.7 TH/MM3 Eosinophils # (Auto) 0.2 TH/MM3 0.2 TH/MM3 Basophils # (Auto) 0.2 TH/MM3 0.0 TH/MM3 CBC Comment DIFF FINAL DIFF FINAL Differential Comment Blood Urea Nitrogen 8 MG/DL 7 MG/DL Creatinine 0.59 MG/DL 0.48 MG/DL Random Glucose 101 MG/DL 84 MG/DL Total Protein 7.8 GM/DL Albumin 3.6 GM/DL Calcium Level 9.3 MG/DL 8.4 MG/DL Alkaline Phosphatase 154 U/L Aspartate Amino Transf (AST/SGOT) 21 U/L Alanine Aminotransferase (ALT/SGPT) 18 U/L Total Bilirubin 1.2 MG/DL Sodium Level 136 MEQ/L 142 MEQ/L Potassium Level 4.0 MEQ/L 3.8 MEQ/L Chloride Level 103 MEQ/L 109 MEQ/L Carbon Dioxide Level 27.7 MEQ/L 24.9 MEQ/L Anion Gap 5 MEQ/L 8 MEQ/L Estimat Glomerular Filtration Rate 130 ML/MIN 165 ML/MIN B-Type Natriuretic Peptide 568 PG/ML Urine Collection Type CLEAN CATCH Urine Color YELLOW Urine Turbidity CLEAR Urine pH 6.5 Urine Specific [place] LESS/EQUAL 1.005 Urine Protein NEG mg/dL Urine Glucose (UA) NEG mg/dL Urine Ketones TRACE mg/dL Urine Occult Blood NEG Urine Nitrite NEG Urine Bilirubin NEG Urine Urobilinogen 1.0 MG/DL Urine Leukocyte Esterase NEG Urine RBC 0-3 /hpf Urine WBC 0-2 /hpf Urine Squamous Epithelial Cells 0-5 /hpf Microscopic Urinalysis Comment CULT NOT INDICATED Physical Examination HEENT: Pupils round and reactive to light; normocephalic; atraumatic; no jaundice. Throat is clear. NECK: Neck is supple, no JVD, no lymphadenopathy. CHEST: Chest on auscultation revealed bilateral basal rales CARDIAC: Regular rate and rhythm. Ejection systolic murmur grade 2 x 6 at the left and right sternal border. ABDOMEN: Soft, nondistended, nontender; no hepatosplenomegaly; bowel sounds are present in all four quadrants. EXTREMITIES: No clubbing, cyanosis, or edema. SKIN: Normal; no rash; no jaundice. CAR FERRIER: No focal deficits; alert and oriented times three. Assessment and Plan Assessment: (1) Esophageal obstruction ICD Codes: K22.2 - Esophageal obstruction Status: Acute (2) Esophageal stricture ICD Codes: K22.2 - Esophageal obstruction Status: Acute Plan 1. Chronic GERD with peptic stricture 2. Possibility of esophageal neoplasm 3. Schedule EGD in the a.m. with possible esophageal dilation 4. P.o. Protonix 40 mg a day Mayco Chung MD Jan 22, 2018 18:14
[2018-01-22 20:00] VITALS: BP 166/73; PULSE 81; RESP 20; TEMP 98.4; O2SAT 95
[2018-01-23] VITALS: BP 154/76; PULSE 78; RESP 18; TEMP 97.1; O2SAT 90
[2018-01-23 08:00] VITALS: BP 152/76; PULSE 78; RESP 18; TEMP 96.8; O2SAT 94
--- NOTE | 2018-01-23 08:29 | HHI.PR ---
Subjective Remarks Follow-up dysphasia and nausea and vomiting. Patient seen and examined, sitting on side of bed comfortable in no apparent distress. Plan for EGD outpatient today. Patient is tolerating pured diet and thin liquids. Denies any abdominal pain, nausea or vomiting. Continue Protonix. GI has seen patient. Objective Vitals Vital Signs Date Time Temp Pulse Resp B/P (MAP) Pulse Ox O2 Delivery O2 Flow Rate FiO2 01/23/18 00:00 97.1 78 18 154/76 (102) 90 01/22/18 20:00 98.4 81 20 166/73 (104) 95 01/22/18 16:00 97.2 70 18 140/70 (93) 95 01/22/18 12:00 98.0 73 18 144/66 (92) 95 I/O 01/22/18 01/22/18 01/22/18 01/23/18 01/23/18 01/23/18 06:59 14:59 22:59 06:59 14:59 22:59 Intake Total 2436 ml 755 ml 240 ml Balance 2436 ml 755 ml 240 ml Intake Oral 0 ml 240 ml IV Total 2436 ml 755 ml # Voids 5 5 # Bowel Movements 1 Result Diagram: 01/22/18 0530 01/22/18 0530 Objective Remarks GENERAL: Well-developed, elderly male patient in [facility]. SKIN: Warm and dry. No rash. HEAD: Normocephalic. Atraumatic. EYES: Pupils equal and round. No scleral icterus. No injection or drainage. ENT: No nasal bleeding or discharge. Mucous membranes pink and moist. NECK: Supple. Trachea midline. CARDIOVASCULAR: Regular rate and rhythm. S1, S2 noted. RESPIRATORY: No accessory muscle use. Clear to auscultation. Breath sounds equal bilaterally. GASTROINTESTINAL: Mid abdominal scar from previous surgery. Palpation of abdominal mesh. Abdomen soft, non-tender, nondistended. Normoactive bowel sounds x4. MUSCULOSKELETAL: No obvious deformities. Extremities without clubbing, cyanosis , or edema. NEUROLOGICAL: Awake and alert. No obvious cranial nerve deficits. Motor grossly within normal limits. 4/5 muscle strength in bilateral upper and lower extremities. Normal speech. PSYCHIATRIC: Appropriate mood and affect; insight and judgment normal. A/P Problem List: (1) Esophageal obstruction ICD Code: K22.2 - Esophageal obstruction Status: Acute (2) Esophageal stricture ICD Code: K22.2 - Esophageal obstruction Status: Acute Assessment and Plan This is a pleasant 87-year-old male patient with known medical history of CAD with [place] and cardiac stent placement, hypertension and history of esophageal stricture who presented to the ED yesterday as well as last evening with dysphagia. Dysphagia Nausea and vomiting - Suspect secondary to history of esophageal stricture rule out esophageal obstruction - Gastroenterology consulted, appreciate input recommendations. Plan for EGD today outpatient. - Speech therapy ordered, relations for. And thin liquid. - Monitor for any aspiration. - Ensure hydration, continue IV fluids. Patient was given Maalox and viscous lidocaine in the ED. Also given PPI. Will continue daily. - Zofran available for nausea as needed. - Morphine IV given in ED. Patient denies any pain at this time. No pain upon assessment. - Supportive care History of CAD, [place] and cardiac stent placement Hypertension, chronic Hyperlipidemia, chronic -Blood pressure is elevated today, patient's p.o. medications are held, patient states that these get caught in his esophagus. Will hold until after EGD and dilation today. Continue to monitor until discharge. DVT prophylaxis: SCDs. We will hold chemical prophylaxis in case patient requires any gastroenterology intervention. Nina Colindres Jan 23, 2018 08:29
[2018-01-23] MEDS: SODIUM CHLORIDE 0.9% FLUSH 10 ML FLUSH IV FLUSH SCH (08:45)
[2018-01-23] MEDS: DOCUSATE SODIUM 50 MG/SENNA 8.6 MG TAB PO SCH (08:45)
--- NOTE | 2018-01-23 08:50 | HHI.DCPOC ---
Discharge Care Plan Diagnosis: (1) Esophageal stricture Goals to Promote Your Health * To prevent worsening of your condition and complications * To maintain your health at the optimal level Directions to Meet Your Goals Take your medications as prescribed Follow your dietary instruction Follow activity as directed Keep your appointments as scheduled Take your immunizations and boosters as scheduled If your symptoms worsen call your PCP, if no PCP go to Urgent Care Center or Emergency Room Smoking is Dangerous to Your Health. Avoid second hand smoke Call the 24-hour hour crisis hotline for domestic abuse at Nina Colindres Jan 23, 2018 08:50
[2018-01-23] MEDS ORDERED: PILL SPLITTER OTHER PRN (09:00)
[2018-01-23] MEDS ORDERED: ATENOLOL 25 MG TAB PO SCH (09:00)
[2018-01-23] MEDS ORDERED: LISINOPRIL 10 MG TAB PO SCH (09:00)
[2018-01-23] MEDS ORDERED: amLODIPine BESYLATE 5 MG TAB PO SCH (21:00)
== END 2018-01-23 14:40 | disposition home or self-care (01) ==
LOC: PHED 22:49 → PHEDA 23:39 → PH3A 01-22 00:42
PROVIDERS: ADMIT Hospitalist; ATTEND Hospitalist
DX: K22.2 Esophageal obstruction (principal); R47.02 Dysphasia; R11.2 Nausea with vomiting, unspecified; K21.9 Gastro-esophageal reflux disease without esophagitis; I25.10 Atherosclerotic heart disease of native coronary artery without angina pectoris; I10 Essential (primary) hypertension; E78.5 Hyperlipidemia, unspecified; Z95.1 Presence of aortocoronary bypass graft; Z95.5 Presence of coronary angioplasty implant and graft; Z95.2 Presence of prosthetic heart valve
CPT/HCPCS: 80048; 80053; 81001; 83880; 85025; 92610; 96361; 96374; 96376; 99285; C9113; G0378; G8996; G8997; G8998; J7030